=== PATIENT | male | born 1955 | race Caucasian/White ===

== ENCOUNTER 2019-04-10 14:27 | Emergency (ER) | payer MEDICAID ==
[~2019-04-10] VITALS: Ht 175.3 cm; Wt 81.8 kg
[2019-04-10] MEDS ORDERED: LISI-662 PO (14:50)
[2019-04-10] MEDS ORDERED: METO25XL PO (14:50)
[2019-04-10] MEDS ORDERED: PHENL PO (14:50)
[2019-04-10] MEDS ORDERED: ERGO50CA PO (14:50)
[2019-04-10] MEDS ORDERED: ASPI81 PO (14:50)
[2019-04-10] MEDS ORDERED: ATOR40TA28 PO (14:50)
[2019-04-10] MEDS ORDERED: SITA100 PO (14:50)
[2019-04-10] MEDS ORDERED: GLIP5 PO (14:50)
[2019-04-10] MEDS ORDERED: CALC-1038 PO (14:50)
[2019-04-10 17:11] LABS: BASOPHILS % (AUTO) 0.2 % (0.0-2.0); EOSINOPHILS % (AUTO) 0.5 % (1.0-6.0); HEMATOCRIT 39.2 % (41-53); HEMOGLOBIN 13.2 g/dL (13.5-17.5); LYMPHOCYTES # (AUTO) 2.7 K/uL (1.0-4.8); LYMPHOCYTES % (AUTO) 35.8 % (22.0-44.0); MEAN CORPUSCULAR HEMOGLOBIN 31.8 pg (26.0-34.0); MEAN CORPUSCULAR HGB CONC 33.7 G/dL (31.0-37.0); MEAN CORPUSCULAR VOLUME 94 fL (80-100); MONOCYTES # (AUTO) 0.7 K/uL (0.1-1.0); MONOCYTES % (AUTO) 9.7 % (2.0-9.0); NEUTROPHILS # (AUTO) 4.1 K/uL (1.8-7.7); NEUTROPHILS % (AUTO) 53.8 % (40.0-70.0); PLATELET COUNT (AUTO) 189 K/uL (150-450); RED BLOOD CELL COUNT(AUTO) 4.15 MIL/uL (4.50-5.90); RED CELL DISTRIBUTION WIDTH 13.7 % (11.5-14.5)
[2019-04-10 17:30] LABS: ANION GAP 10 mmol/L (8-16); CALCIUM, TOTAL 8.5 mg/dL (8.8-10.5); CARBON DIOXIDE 25 mmol/L (22-29); CHLORIDE 102 mmol/L (98-107); CREATININE 1.12 mg/dL (0.60-1.30); GLOMERULAR FILTR. RATE CALC > 60 mL/min (>60); GLUCOSE,RANDOM 90 mg/dL (70-110); POTASSIUM 4.5 mmol/L (3.5-5.1); SODIUM SERUM 137 mmol/L (136-145); UREA NITROGEN, BLOOD 18 mg/dL (7-18)
[2019-04-10 17:32] LABS: PHENYTOIN (DILANTIN) 1.1 mcg/mL (10.0-20.0)
[2019-04-10 17:43] VITALS: BP 129/66
== END 2019-04-10 17:58 | disposition home or self-care (01) ==
LOC: EMS 14:28 → EDSEX 14:28 → EMS 17:58
DX: R42 Dizziness and giddiness (principal); R27.0 Ataxia, unspecified; E11.9 Type 2 diabetes mellitus without complications; E78.00 Pure hypercholesterolemia, unspecified; I10 Essential (primary) hypertension; Z79.899 Other long term (current) drug therapy; Z79.82 Long term (current) use of aspirin
CPT/HCPCS: 70450